=== PATIENT | male | born 1950 | race African-American/Black ===

== ENCOUNTER 2017-07-25 12:31 | Day surgery (SDC) | payer OTHER, BC ==
[2017-07-24 16:13] VITALS: BMI 29.4
--- NOTE | 2017-07-25 10:59 | HP ---
[facility] - Chief Complaint Chief Complaint: painful hardware right ankle History Source: Patient - Past Medical History Allergies/Adverse Reactions: Allergies Allergy/AdvReac Type Severity Reaction Status Date / Time codeine Allergy "HEADACHE" Verified 07/24/17 16:22 - Current Medications Current Medications: Home Medications Medication Instructions Recorded Ascorbic Acid [Vitamin C -] 1,000 mg PO DAILY 07/24/17 Multivitamin/Iron/Folic Acid 1 each PO DAILY 07/24/17 [Centrum Adults Tablet] Ubidecarenone [Co Q10] 100 mg PO DAILY 07/24/17 [facility] Physical Exam - Physical Examination Extremities: Other (+ tenderness over hardware right ankle) [facility] Impression/Plan - Impression/Plan Impression: painful hardware right ankle Operative Procedure: GENE right ankle Date to be Performed: 07/25/17
--- NOTE | 2017-07-25 15:01 | OP ---
Operative Note - Note: Operative Date: 07/25/17 ([facility]) Pre-Operative Diagnosis: right ankle painful hardware Operation: right ankle removal of hardware Post-Operative Diagnosis: Same as Pre-op Surgeon: Lexa Foster Anesthesiologist/SPEEDER HAND: Kathryn Hart Anesthesia: General, Local Specimens Removed: distal fibular plate and screws Estimated Blood Loss (mls): 10 Operative Report Dictated: Yes
[2017-07-25] MEDS ORDERED: MIDAZOLAM HCL 2 MG/2 ML SINGLE DOSE VIAL ONE (15:07)
[2017-07-25] MEDS ORDERED: PROPOFOL 20 ML ONE ×2 (15:07→15:18)
[2017-07-25] MEDS ORDERED: ceFAZolin SODIUM 1 GM VIAL ONE (15:16)
[2017-07-25] MEDS ORDERED: ceFAZolin SODIUM 1 GM VIAL IVPB ONE (15:20)
[2017-07-25] MEDS ORDERED: ONDANSETRON 4 MG/2 ML VIAL ONE ×2 (15:37→15:38)
[2017-07-25] MEDS ORDERED: IBUPROFEN 800 MG/8 ML IJ IVPB PRN (15:58)
[2017-07-25] MEDS ORDERED: ONDANSETRON 4 MG/2 ML VIAL IVPUSH PRN (15:58)
[2017-07-25] MEDS ORDERED: LACTATED RINGERS SOLUTION 1,000 ML IV SCH (16:00)
[2017-07-25 17:58] VITALS: TEMP 98
[2017-07-25 19:04] VITALS: BP 145/81; PULSE 60
--- NOTE | 2017-07-26 08:18 | OP ---
DATE OF OPERATION: 07/25/2017 PREOPERATIVE DIAGNOSIS: Painful hardware, right ankle. POSTOPERATIVE DIAGNOSIS: Painful hardware, right ankle. PROCEDURE: Removal of hardware, right ankle. SURGICAL ATTENDING: Lexa Foster MD ANESTHESIA: LMA. CLOSURE: Vicryl 2-0 subcutaneous and 3-0 nylon horizontal mattress for the skin. ESTIMATED BLOOD LOSS: Negligible. COMPLICATIONS: None. CONDITION: To recovery in stable condition. DESCRIPTION OF OPERATIVE PROCEDURE: Patient was taken to the operating room on July 25, 2017. General anesthesia with an LMA was administered by the anesthesiologist. prior to the case. The right lower extremity was prepped and draped in the usual sterile fashion. We utilized the previous incision from the initial ORIF of the ankle to remove the hardware. This incision extended from the tip of the lateral malleolus propagating proximally. Full dissection was carried down to the level of the plate and blunt dissection to expose the plate proximally to distally. All the screws were removed and then the plate was removed as well. The area around the holes was curetted and smoothened in order to have a smooth surface of the remaining bone. The wound was irrigated. Subcutaneous was closed with 2-0 Vicryl and the skin was closed with 3-0 nylon horizontal mattress suture. Sterile pressure dressing was applied. Patient awakened from anesthesia and transferred to recovery in stable condition. No complication. Estimated blood loss negligible. Omari [id number]
--- NOTE | 2017-07-29 09:19 | PATH ---
Surgical Pathology Report Patient Name: CHARLES ALVES [facility]. Rec. #: [id number] /Age/Gender: 1950 (Age: 66) / M Account: [id number] Location: [facility] SURGICAL Taken: 07/25/2017 Received: 07/28/2017 Reported: 07/29/2017 Physicians: Lexa Foster M.D. Specimen(s) Received OLD ANKLE HARDWARE Clinical History Right ankle hardware Final Diagnosis HARDWARE, ANKLE, RIGHT, REMOVAL: SURGICAL HARDWARE. MACROSCOPIC DIAGNOSIS. Electronically Signed Cornelia Harper M.D. Gross Description Received fresh labeled "old ankle hardware," is an 8.8 x 0.9 x 0.2 cm marcial metallic plate. Also received within the same container are 6 marcial metallic screws ranging from 1.5-1.7 cm in length. No soft tissue is present. No sections are submitted, gross only. /07/28/2017 saudi07/28/2017
== END 2017-07-25 18:15 | disposition home or self-care (01) ==
LOC: JASU-SURG 12:31
PROVIDERS: ATTEND Orthopaedic Surgery
PROC: 0YP90YZ Removal of Other Device from Right Lower Extremity, Open Approach (ICD-10-PCS; principal; 2017-07-25 13:45)
DX: T84.84XA Pain due to internal orthopedic prosthetic devices, implants and grafts, initial encounter (principal)
CPT/HCPCS: 88300-TC; 94760